=== PATIENT | female | born 1960 | race Caucasian/White ===

== ENCOUNTER 2025-01-28 14:16 | Outpatient (CLI) | payer MEDICARE, SELFPAY ==
--- NOTE | 2025-01-28 14:00 | DI.RAD_ITS ---
Exam(s) XR SHOULDER LT COMPLETE 2+V EXAM: XR SHOULDER LT COMPLETE 2+V CLINICAL HISTORY: LEFT SHOULDER PAIN. TECHNIQUE: 2D digital imaging was performed. Two views. COMPARISON: No exams were available for comparison FINDINGS: BONES: No acute fracture is present. No bony destructive lesion is seen. JOINTS: No dislocation present. No significant degenerative changes at the AC joint or glenohumeral joint. SOFT TISSUE: Normal calcification adjacent to greater tuberosity consistent with calcific tendinosis. IMPRESSION: Calcific tendinosis. DATA REPOSITORY: RADIATION DOSE DELIVERED:
== END 2025-01-28 14:17 | disposition home or self-care (01) ==
LOC: DIORS 14:18
PROVIDERS: PCP Student in an Organized Health Care Education/Training Program; Visit Provider Student in an Organized Health Care Education/Training Program
DX: M25.512 Pain in left shoulder (principal); M67.922 Unspecified disorder of synovium and tendon, left upper arm
CPT/HCPCS: 99203; 73030

== ENCOUNTER 2025-02-26 03:11 | Outpatient (CLI) | payer MEDICARE, SELFPAY ==
--- NOTE | 2025-02-26 07:15 | DI.MRI_ITS ---
Exam(s) MR UPPER JOINT LT WO EXAM: MR UPPER JOINT LT WO CLINICAL HISTORY: L SHOULDER PAIN,TENDINOPATHY LT BICEPS TENDON,M67.922. TECHNIQUE: Multiplanar multisequence MRI was performed. COMPARISON: CR XR SHOULDER LT COMPLETE 2+V from 01/28/2025 FINDINGS: BONES: There is no fracture or contusion pattern. JOINTS: The acromioclavicular joint is normal. The glenohumeral joint is normal. No significant joint effusion is seen. TENDONS: Supraspinatus: There is tendinosis of the supraspinatus tendon without evidence of a tear. There is calcific tendinitis present. Infraspinatus: Unremarkable. Subscapularis: Unremarkable. Teres Minor: Unremarkable. Biceps and [place]: Unremarkable. MUSCLES: Unremarkable. No significant muscular fatty atrophy. GLENOID LABRUM: There is a tear of the superior labrum through its entire length. There is intermediate intensity signal seen in the superior labrum. SOFT TISSUES: Unremarkable. LIGAMENTS: There is a thickened middle glenohumeral ligament with absent anterior superior labrum. OTHER: There is a small amount of fluid in the subacromial subdeltoid bursa. IMPRESSION: 1. The superior labrum shows intermediate signal suspicious for tear. The signal extent through its entire superior length. 2. Supraspinatus tendinosis. No definite evidence of a rotator cuff tear. 3. There is a thickened middle glenohumeral ligament with absent/decreased size of the anterior superior labrum. 4. Small amount of fluid in the subacromial subdeltoid bursa. DATA REPOSITORY:
== END 2025-02-26 03:31 ==
PROVIDERS: PCP Student in an Organized Health Care Education/Training Program; Visit Provider Student in an Organized Health Care Education/Training Program
DX: M67.922 Unspecified disorder of synovium and tendon, left upper arm (principal); S43.432A Superior glenoid labrum lesion of left shoulder, initial encounter; X58.XXXA Exposure to other specified factors, initial encounter
CPT/HCPCS: 73221

== ENCOUNTER → 2025-03-03 12:48 | Outpatient (BNVA) | payer MEDICARE, SELFPAY | PROVIDERS: PCP Student in an Organized Health Care Education/Training Program; Referring Provider Student in an Organized Health Care Education/Training Program; Visit Provider Student in an Organized Health Care Education/Training Program | DX: M67.922 Unspecified disorder of synovium and tendon, left upper arm (principal); M75.32 Calcific tendinitis of left shoulder; S43.432A Superior glenoid labrum lesion of left shoulder, initial encounter; X58.XXXA Exposure to other specified factors, initial encounter | CPT/HCPCS: 99213 ==